=== PATIENT | female | born 1975 | race Two or more races ===

== ENCOUNTER 2017-08-13 07:39 | Emergency (ER) | payer OTHER ==
[~2017-08-13] VITALS: Ht 160 cm; Wt 62.6 kg
[~2017-08-13 07:39] MED LIST: CATAFLAM50 MG PO; KLONOPIN0.5 MG/TAB PO; PAXIL CR25 MG PO; PREVACID30 MG
== END 2017-08-13 17:01 | disposition home or self-care (01) ==
LOC: ER 07:39
DX: N20.1 Calculus of ureter (principal); F44.89 Other dissociative and conversion disorders

== ENCOUNTER 2019-09-17 00:50 | Emergency (ER) | payer OTHER ==
[~2019-09-17] VITALS: Ht 160 cm; Wt 65.8 kg
[2019-09-17] MEDS ORDERED: CLARITHROMYCIN500 MG PO (03:46)
== END 2019-09-17 03:56 | disposition home or self-care (01) ==
LOC: ER 00:50
DX: S01.02XA Laceration with foreign body of scalp, initial encounter (principal); W01.198A Fall on same level from slipping, tripping and stumbling with subsequent striking against other object, initial encounter; Y93.89 Activity, other specified; Y92.012 Bathroom of single-family (private) house as the place of occurrence of the external cause; Y99.8 Other external cause status